=== PATIENT | female | born 1960 | race Caucasian/White ===

== ENCOUNTER → 2016-09-12 | Outpatient (CLI) | payer BC ==
[~2016-09-12] MED LIST: LOSA1TAB PO; POTA10CA28 PO
[2016-09-12 16:40] LABS: HEMATOCRIT 40.3 % (37-47); MEAN CELL VOLUME 88.6 fL (80-100); MEAN CORPUSCULAR HEMOGLOBIN 30.5 pg (25-34); MEAN CORPUSCULAR HGB CONC 34.5 g/dl (32-36); PLATELET COUNT 307 K/uL (130-400); RED BLOOD COUNT 4.55 M/uL (4.2-5.4); WHITE BLOOD COUNT 7.89 K/uL (4.8-10.8)
[2016-09-12 16:49] LABS: ALT/SGPT 29 U/L (12-78); BLOOD UREA NITROGEN 9 mg/dl (7-18); BUN/CREATININE RATIO 10.9 (10-20); CARBON DIOXIDE 29 mmol/L (21-32); CHLORIDE 103 mmol/L (98-107); CHOLESTEROL 167 mg/dl (0-200); CREATININE 0.85 mg/dl (0.60-1.20); GLUCOSE 119 mg/dl (70-99); POTASSIUM 3.7 mmol/L (3.5-5.1); SODIUM 142 mmol/L (136-145); TRIGLYCERIDES 67 mg/dl (0-150); VERY LOW DENSITY LIPOPROT CALC 13 mg/dl
[2016-09-12 16:59] LABS: ALB/GLOB RATIO 1.1 (0.9-2); ALKALINE PHOSPHATASE 63 U/L (45-117); AST/SGOT 18 U/L (15-37); CHOLESTEROL/HDL RATIO 2.5; HDL CHOLESTEROL 66 mg/dl; LDL CHOLESTEROL CALCULATED 88 mg/dl
== END | disposition home or self-care (01) ==
LOC: C.LABBFT 16:24
PROVIDERS: ATTEND Internal Medicine
DX: I10 Essential (primary) hypertension (principal)

== ENCOUNTER → 2016-10-23 | Outpatient (CLI) | payer BC | END | disposition home or self-care (01) | LOC: C.PATHSPEC 13:58 | PROVIDERS: ATTEND Dermatology | DX: L82.1 Other seborrheic keratosis (principal) ==

== ENCOUNTER → 2016-11-27 | Outpatient (CLI) | payer BC ==
--- NOTE | 2016-11-27 12:32 | MAMMOGRAPHY REPORT ---
BILATERAL DIGITAL SCREENING MAMMOGRAM WITH CAD: 11/27/2016 CLINICAL HISTORY: Routine screening. Patient has no complaints. TECHNIQUE: Bilateral CC and MLO views were obtained. Current study was also evaluated with a Comput er Aided Detection (CAD) system. COMPARISON: Comparison is made to exams dated: 11/24/2015 mammogram, 11/22/2014 mammogram, 11/19/2013 mammogram, 11/17/2012 mammogram, 11/06/2009 mammogram - [facility], and 11/03/2008. BREAST COMPOSITION: The tissue of both breasts is heterogeneously dense, which may obscure small ma sses. FINDINGS: The parenchymal pattern is similar to prior mammograms. No developing mass, architectura l distortion or cluster of suspicious microcalcifications is seen in either breast. IMPRESSION: ACR BI-RADS CATEGORY 2: BENIGN There is no mammographic evidence of malignancy. A 1 year screening mammogram is recommended. The p atient will receive written notification of the results. Approximately 10% of breast cancers are not detected with mammography. A negative mammographic repor t should not delay biopsy if a clinically suggestive mass is present. Lynnette Todd M.D. ay/:11/27/2016 08:35:08 Accounting Specialist: Emily Barnett, [facility] letter sent: Normal 1/2 BI-RADS Code: ACR BI-RADS Category 2: Benign
== END | disposition home or self-care (01) ==
LOC: C.MAMM 07:53
PROVIDERS: ATTEND Internal Medicine
DX: Z12.31 Encounter for screening mammogram for malignant neoplasm of breast (principal)

== ENCOUNTER → 2017-10-29 | Outpatient (CLI) | payer OTHER | END | disposition home or self-care (01) | LOC: C.PAPS 16:36 | PROVIDERS: ATTEND Obstetrics & Gynecology | DX: Z12.4 Encounter for screening for malignant neoplasm of cervix (principal) ==

== ENCOUNTER → 2017-12-02 | Outpatient (CLI) | payer OTHER ==
--- NOTE | 2017-12-04 07:49 | MAMMOGRAPHY REPORT ---
BILATERAL DIGITAL SCREENING MAMMOGRAM TOMOSYNTHESIS WITH CAD: 12/02/2017 CLINICAL HISTORY: Routine screening. TECHNIQUE: Breast tomosynthesis in addition to standard 2D mammography was performed. Current study was also evaluated with a Computer Aided Detection (CAD) system. COMPARISON: Comparison is made to exams dated: 11/27/2016 mammogram, 11/24/2015 mammogram, 11/22/2014 m ammogram, 11/19/2013 mammogram, 11/17/2012 mammogram, and 11/14/2011 mammogram - [facility]. BREAST COMPOSITION: The tissue of both breasts is heterogeneously dense, which may obscure small mas ses. FINDINGS: The parenchymal pattern is unchanged. No developing mass, architectural distortion or clus ter of suspicious microcalcifications is seen in either breast. IMPRESSION: ACR BI-RADS CATEGORY 2: BENIGN There is no mammographic evidence of malignancy. A 1 year screening mammogram is recommended. The pa tient will receive written notification of the results. Approximately 10% of breast cancers are not detected with mammography. A negative mammographic report should not delay biopsy if a clinically suggestive mass is present. Lynnette Todd M.D. ay/:12/02/2017 17:10:32 Mill Representative: Kimberly JACQUES(Sky)(Aly), [facility] letter sent: Normal 1/2 BI-RADS Code: ACR BI-RADS Category 2: Benign
== END | disposition home or self-care (01) ==
LOC: C.MAMM 08:02
PROVIDERS: ATTEND Internal Medicine
DX: Z12.31 Encounter for screening mammogram for malignant neoplasm of breast (principal)

== ENCOUNTER 2024-02-19 19:26 | Inpatient (IN) ==
[2024-02-19 19:51] LABS: Basophils # (auto) 0.06 K/uL (0.00-0.20); Basophils % (auto) 0.8 %; Eosinophils % (auto) 8.1 %; Hematocrit (blood only) 41.9 % (37.0-47.0); Hemoglobin 14.4 g/dl (12.0-16.0); Immature Granulocytes # (auto) 0.01 K/uL (0.01-0.20); Immature Granulocytes % (auto) 0.1 %; Lymphocytes # (auto) 1.59 K/uL (1.20-3.40); Lymphocytes % (auto) 21.4 %; Mean Corpuscular Hemoglobin 30.1 pg (25.0-34.0); Mean Corpuscular Hgb Conc 34.4 g/dL (32.0-36.0); Mean Corpuscular Volume 87.7 fL (80.0-100.0); Mean Platelet Volume 10.7 fL (9.4-12.4); Monocytes # (auto) 0.76 K/uL (0.11-0.59); Monocytes % (auto) 10.2 %; Neutrophils % (auto) 59.4 %; Platelet Count 238 K/uL (130-400); RDW Coefficient of Variation 11.9 % (11.5-14.5); Red Blood Count 4.78 M/uL (4.20-5.40); White Blood Count 7.42 K/ul (4.8-10.8)
[2024-02-19 20:10] LABS: Albumin Globulin Ratio 1.5 (0.9-2); Albumin Level 4.6 gm/dl (3.4-5.0); BUN Creatinine Ratio 14.1 (10-20); Bilirubin,Total 0.5 mg/dl (0.2-1.0); Calcium 9.8 mg/dl (8.6-10.3); Creatinine Clr Calc Pharmacy 76.6 ml/min; Est GFR (African American) 77.3 ml/min; Est GFR (Non-African American) 66.7 ml/min; Potassium 3.5 mmol/L (3.5-5.1); Total Protein 7.6 gm/dl (6.0-8.3)
[2024-02-19 20:24] LABS: Troponin I High Sensitivity 210.9 pg/ml (0-14)
--- NOTE | 2024-02-19 20:48 | Emergency Department Note ---
Impression & Plan Acute non-ST elevation myocardial infarction (NSTEMI) ED Provider Note NAME: TASH CHAVEZ AGE: 63 SEX: F : 1960 ARRIVES VIA: Walk-In INFORMANT: Patient, ED PROVIDER(S): Emilio Martinez MD CHIEF COMPLAINT: Indigestion HPI: This is a 63-year-old female presenting for indigestion sensation. Patient notes that at around 6 PM she began having indigestion sensation with nausea. She notes that her bilateral arms were somewhat heavy. This concerned her so she came to the hospital. She has no history of cardiac disease patient says happened previously as well. No recent fevers, chills, vomiting, abdominal pain. No back pain. No trouble breathing. Patient did deny any current chest pain as well. Patient took aspirin prior to arrival. ROS: See above HPI for pertinent positives & negatives. A total of 10 systems reviewed and were otherwise negative. PHYSICAL EXAMINATION: General: resting comfortably in no acute distress Head: Normocephalic and atraumatic Eyes: Normal inspection, extraocular muscles intact Ear, nose, throat: Normal external exam Neck: Normal range of motion Respiratory: lungs clear to auscultation bilaterally Cardiovascular: Regular rate/rhythm, no murmur GI: soft, nontender, no guarding or rebound Extremities: nontender, moves all extremities Neuro: The patient awake and alert, appropriately conversive, no focal deficits, symmetric faces Skin: Warm, dry, and intact MEDICAL DECISION MAKING: This is a 63-year-old female presenting for indigestion/nausea. Patient has no current chest pain. She notes arm heaviness. Concern for ACS, PE, dissection, gastroenteritis, GERD. -First ECG independently interpreted by me with normal sinus rhythm, rate of 64, normal axis, first-degree AV block, normal QRS, normal QTc, no ST segment elevations consistent with STEMI criteria -Second ECG independently interpreted by me with normal sinus rhythm, rate of 60, normal axis, first-degree AV block, normal QRS, normal QTc, no ST segment elevations consistent with STEMI criteria -Troponin is elevated at over 200 at this time. Patient notes significant proved in symptoms since being in the emergency department. She took aspirin prior to arrival. -Clinic without severe pain in back or chest, low concern for dissection. No hypoxia or tachycardia to suggest PE. Consider NSTEMI is most likely diagnosis with his elevated troponin with reassuring EKG. -Will start heparin at this time for suspected NSTEMI. -Patient care discussed with Sriram Baldwin PA-C for admission Differential diagnosis: See above ER treatment provided: See below Diagnostics interpreted by me: ECG: See above Cardiac Monitoring: An order was placed for continuous cardiac monitoring. The monitor shows a rate of 65 with sinus rhythm. Laboratory studies: As stated above and show below. Imaging studies: See below. Past Med/Surg History Problem List (Updated 02/19/24 @ 22:22 by Emilio Martinez MD) Acute non-ST elevation myocardial infarction (NSTEMI) (Acute) Elevated troponin Urge incontinence Esophageal dysphagia Hypertension History of colon polyps Prediabetes Postmenopausal Chronic vulvitis GERD (gastroesophageal reflux disease) Postmenopausal atrophic vaginitis Medical History PMR (polymyalgia rheumatica) History of prediabetes Hx of chest pain History of COVID-19 Tubular adenoma of colon Depression Cardiac murmur Hypertension Surgical History H/O eye surgery History of bilateral tubal ligation History of colonoscopy History of tooth extraction Strabismus Family History Sister Breast cancer Mother Hypertension Other No significant family history Denies family history of Ovarian cancer Prostate cancer Myocardial infarction Colorectal cancer Social History Smoking Status: Never smoker Second Hand Exposure: No; Do You Dip or Chew Tobacco: No; Hx Alcohol Use: Yes Alcohol Intake Frequency: Monthly or Less Hx Substance Use: No Preferred Language: Citizen Of [place] Communication Ability: Effective Visual Impairment: No Limitations Hearing Ability: Normal Trawl Net Maker Required: No Beliefs That Will Affect Care: None marital status: Current Living Situation: Spouse current occupational status: employed Feels Safe at Home: Yes Childhood Exposure to Second-Hand Smoke: No Dental Care, Regularly: Yes Physical Activity Frequency: 1-2 Times per Week Seatbelt Use: always Sunscreen Use: Yes Assistive Devices: Glasses Allergies Allergies Allergy/AdvReac Type Severity Reaction Status Date / Time No Known Allergies Allergy Verified 02/19/24 14:47 Home Meds Home Medications Medication Instructions Recorded Confirmed multivitamin 1 tab PO Q2D 04/14/19 02/19/24 Previous Rx's Medication Instructions Recorded triamcinolone acetonide 0.1 % 1 applic topical UD PRN Skin 10/30/22 topical cream Irritation #15 grams solifenacin 10 mg tablet 10 mg PO DAILY #90 tabs 12/23/23 famotidine 40 mg tablet 40 mg PO DAILY PRN heartburn #30 01/02/24 tabs pantoprazole 40 mg tablet,delayed See Rx Instructions .Route 01/02/24 release .COMPLEX #60 tabs losartan 50 mg tablet 50 mg PO DAILY #90 tabs 01/05/24 Results & Data (ED) Vital Signs Vital Signs - 24 hr 02/19/24 19:28 02/19/24 20:41 02/19/24 20:42 Temperature 36.6 C Temperature Source Temporal Artery Scan Pulse Rate 62 67 65 Respiratory Rate 18 20 Respiratory Effort / Characteristics Non-Labored Spontaneous Respiratory Depth Normal Blood Pressure 210/92 H Blood Pressure Mean 131 Pulse Oximetry 98 Oxygen Delivery Method Room Air Sepsis Recent Fever Within 48 Hours No Sepsis New/Unexplained Change in Mental Status No Sepsis Action Taken by Nursing No Action Required Laboratory Data 02/19/24 19:40 02/19/24 19:40 Lab Results 02/19/24 Range/Units 19:40 WBC 7.42 (4.8-10.8) K/ul RBC 4.78 (4.20-5.40) M/uL Hgb 14.4 (12.0-16.0) g/dl Hct 41.9 (37.0-47.0) % MCV 87.7 (80.0-100.0) fL MCH 30.1 (25.0-34.0) pg MCHC 34.4 (32.0-36.0) g/dL RDW Std Deviation 38.0 (36.4-46.3) fL RDW Coeff of Seth 11.9 (11.5-14.5) % Plt Count 238 (130-400) K/uL MPV 10.7 (9.4-12.4) fL Immature Gran % (Auto) 0.1 % Neut % (Auto) 59.4 % Lymph % (Auto) 21.4 % Bullock % (Auto) 10.2 % Eos % (Auto) 8.1 % Baso % (Auto) 0.8 % Neut # (Auto) 4.40 (1.40-6.50) K/uL Lymph # (Auto) 1.59 (1.20-3.40) K/uL [place]ock # (Auto) 0.76 H (0.11-0.59) K/uL Eos # (Auto) 0.60 H (0.00-0.50) K/uL Baso # (Auto) 0.06 (0.00-0.20) K/uL Immature Gran # (Auto) 0.01 (0.01-0.20) K/uL APTT 27 (21-31) Seconds PTT Ratio 1.0 Sodium 140 (136-145) mmol/L Potassium 3.5 (3.5-5.1) mmol/L Chloride 107 (98-107) mmol/L Carbon Dioxide 26 (21-32) mmol/L Anion Gap 7 (3-11) BUN 13 (6-23) mg/dl Creatinine 0.92 (0.6-1.2) mg/dl Est Cr Clr Drug Dosing 76.6 ml/min Est GFR ( Amer) 77.3 ml/min Est GFR (Non-Af Amer) 66.7 ml/min BUN/Creatinine Ratio 14.1 (10-20) Glucose 134 H (70-99(Fasting)) mg/dl Calcium 9.8 (8.6-10.3) mg/dl Magnesium 2.0 (1.7-2.4) mg/dl Total Bilirubin 0.5 (0.2-1.0) mg/dl AST 16 (13-39) U/L ALT 14 (7-52) U/L Alkaline Phosphatase 61 (34-104) U/L Troponin I High Sens 210.9 H* (0-14) pg/ml Total Protein 7.6 (6.0-8.3) gm/dl Albumin 4.6 (3.4-5.0) gm/dl Globulin 3.0 (2.5-4.0) gm/dl Albumin/Globulin Ratio 1.5 (0.9-2) Lipase 14 (11-82) U/L Administered Medications Nitroglycerin (Nitroglycerin 2% Ointment 30gm Tube) 0.5 inch EXT Q6H SUSY Stop: 03/20/24 21:59 Last Admin: 02/19/24 21:51 Dose: 0.5 inch Documented By: DANYEL Discontinued Medications Aspirin (Aspirin 81 Mg Ectab) 81 mg PO NOW STA Stop: 02/19/24 21:16 Last Admin: 02/19/24 21:50 Dose: 81 mg Documented By: DANYEL Heparin Sodium/Dextrose (Heparin Iv Adult Wt-Based Low-Dose W/ Initial Bolus Protocol) 1 each IV NOW STA; Protocol Stop: 02/19/24 20:50 Last Admin: 02/19/24 20:59 Dose: Not Given Documented By: DANYEL Pantoprazole Sodium 40 mg/ (Syringe) 10 mls @ 5 mls/min IV NOW ONE Stop: 02/19/24 21:01 Last Admin: 02/19/24 21:51 Dose: 5 mls/min Documented By: DANYEL Famotidine (Pepcid 20mg Iv Push) 20 mg in 5 mls @ 2.5 mls/min IV NOW STA Stop: 02/19/24 20:59 Last Admin: 02/19/24 21:51 Dose: 2.5 mls/min Documented By: DANYEL Ioversol (Optiray 320 125ml) 119 ml IV ONCE ONE Stop: 02/19/24 21:38 Last Admin: 02/19/24 21:38 Dose: 119 ml Documented By: ARASELI Potassium Chloride (Potassium Chloride Crtab 20 Meq Tabcr) 40 meq PO NOW STA Stop: 02/19/24 21:40 Last Admin: 02/19/24 21:51 Dose: 40 meq Documented By: DANYEL Discharge Plan Visit Data Chief Complaint: Chest Pain Stated Complaint: CHEST PAIN, ARM HEAVINESS ED Provider: Emilio Martinez Discharge Problem: Acute non-ST elevation myocardial infarction (NSTEMI) Patient Disposition: Admitted As Inpatient Discharge Instructions Interventions: ED Discharge Assessment Last Done: 02/19/24 22:17
--- NOTE | 2024-02-19 20:55 | History & Physical Report ---
Date of Service February 19, 2024 Assessment & Plan (1) Chest pain: Plan: Admit to the PCU on telemetry and pulse oximetry Currently hypertensive with systolics in the 180s to without chest discomfort, otherwise stable, and nontoxic-appearing Presented to ER after experiencing approximately 1 hour of substernal/epigastric burning discomfort and a feeling of heaviness in the bilateral posterior upper extremities which started around 6 PM this evening Initial high-sensitivity troponin is elevated to [address] segment or T wave changes on EKG however there is a note of possible age undetermined septal infarct While her chest discomfort is similar to previous episodes of reflux/GERD, and she does have a history of esophageal stenosis requiring previous dilation, we cannot rule out cardiac etiology at this time Patient 2 baby aspirin prior to arrival, will give another 81 mg aspirin now Will start 0.5 inches of Nitro paste now, and will have as needed hydralazine on board for ongoing hypertension Will obtain stat CTA of the chest to rule out aortic dissection with her substernal chest pain and hypertension on arrival Will wait to start heparin drip until CTA chest results are back, if negative for dissection we will start Will follow 2-hour repeat high-sensitivity troponin is in process, will then continue to trend overnight Will ensure potassium is at or above 4.0 and magnesium is at or above 2 point Will wait to start beta-catarino as heart rate has been in the 60s Cardiology consult placed will make n.p.o. at midnight in case they take her to the Medical Technical Writer tomorrow Will order IV pantoprazole and famotidine in case her symptoms are related to reflux N.p.o. at midnight AM CBC, CMP, mag, PT/INR (2) Hypertension: Plan: Patient confirms she has not missed recent doses of her losartan Rest of care per chest pain plan (3) GERD (gastroesophageal reflux disease): Plan: Will continue IV famotidine and pantoprazole for now Plan The patient was discussed with Dr. Lamas at the time of admission History of Present Illness Chief Complaint: Chest pain Primary Care Provider: Parisa Kirkland MD Thea is a 63-year-old female with a past medical history significant for GERD, esophageal stenosis, prediabetes, hypertension, PMR, and obesity who presented to the [facility] ED on 02/19/2024 with a chief complaint of substernal burning chest pain with radiation to the left upper extremity which began at approximately 6 PM this evening. On arrival to the ED she was noted to be hypertensive at 162/84, but was otherwise stable. Labs were significant for an initial high-sensitivity troponin of 210. Chest x-ray had yet to be read prior to my exam however on initial review appears negative for acute findings. 2 separate EKGs obtained in the emergency department showed normal sinus rhythm with evidence this septal infarct age undetermined. Per the ED, the patient took full dose aspirin prior to arrival. Prior to admission the patient was ordered a dose of sublingual nitroglycerin and was started on a low- dose, weight-based heparin drip with bolus. Patient was sitting in bed in no acute distress at the time exam. She states that she was in her normal state of health, sitting at her kitchen table this evening writing a letter when she had acute onset of substernal/epigastric burning discomfort. When asked about associated/radicular pain the patient states that the back of her bilateral arms felt "heavy". She denies pain in the neck, jaw, back. States symptoms lasted for approximately 1 hour, confirms that she is no longer experiencing the pain at this time but just feels tired. She took 2 baby aspirin at home when symptoms began. When asked what she had to eat earlier in the day she explains that she had an Khmer sub for lunch along with a soda, and did not have anything for dinner prior to symptoms starting. She denies experiencing decreased exercise tolerance or increased shortness of breath/dyspnea on exertion with her normal activities such as going up steps. She adds that yesterday she went for a long walk to her friend's house and felt fine. She denies previous history of cardiac disease herself, and denies any history of sudden cardiac before the age of 50 on either side of the family. When asked, she denies a history of major bleeding and is in agreement with starting heparin drip tonight. Denies recent pleuritic chest pain, cough, hemoptysis, vomiting, dysuria/hematuria, diarrhea, melena, lower extremity swelling, recent trauma. She is a full code and she would want her to make medical decisions for her if she could not make them herself. Of note, the patient underwent a stress echocardiogram on 08/12/2022 which was read as normal, she had no exercise-induced chest pain, and was noted to be hypertensive shortly after. Please refer to Dr. Simon's attestation for any changes to the treatment plan Allergies Allergy/AdvReac Type Severity Reaction Status Date / Time No Known Allergies Allergy Verified 02/19/24 14:47 Home Medications Medication Instructions Recorded Confirmed Type multivitamin 1 tab PO Q2D 04/14/19 02/19/24 History triamcinolone acetonide 0.1 % 1 applic topical UD PRN Skin 10/30/22 02/19/24 Rx topical cream Irritation #15 grams solifenacin 10 mg tablet 10 mg PO DAILY #90 tabs 12/23/23 02/19/24 Rx famotidine 40 mg tablet 40 mg PO DAILY PRN heartburn #30 01/02/24 02/19/24 Rx tabs pantoprazole 40 mg tablet,delayed See Rx Instructions .Route 01/02/24 02/19/24 Rx release .COMPLEX #60 tabs losartan 50 mg tablet 50 mg PO DAILY #90 tabs 01/05/24 02/19/24 Rx amlodipine 2.5 mg tablet 2.5 mg PO PM #30 tabs 02/21/24 Rx Past Med/Surg History Problem List (Updated 02/19/24 @ 22:22 by Emilio Martinez MD) Acute non-ST elevation myocardial infarction (NSTEMI) (Acute) Elevated troponin Urge incontinence Esophageal dysphagia Hypertension History of colon polyps Prediabetes Postmenopausal Chronic vulvitis GERD (gastroesophageal reflux disease) Postmenopausal atrophic vaginitis Medical History PMR (polymyalgia rheumatica) History of prediabetes Hx of chest pain History of COVID-19 Tubular adenoma of colon Depression Cardiac murmur Hypertension Surgical History H/O eye surgery History of bilateral tubal ligation History of colonoscopy History of tooth extraction Strabismus Family History Sister Breast cancer Mother Hypertension Other No significant family history Denies family history of Ovarian cancer Prostate cancer Myocardial infarction Colorectal cancer Social History Smoking Status: Never smoker Second Hand Exposure: No; Do You Dip or Chew Tobacco: No; Hx Alcohol Use: Yes Alcohol Intake Frequency: Monthly or Less Hx Substance Use: No Preferred Language: [place] Communication Ability: Effective Visual Impairment: No Limitations Hearing Ability: Normal Computer Salesperson Retail Required: No Beliefs That Will Affect Care: None marital status: Current Living Situation: Spouse current occupational status: employed Feels Safe at Home: Yes Childhood Exposure to Second-Hand Smoke: No Dental Care, Regularly: Yes Physical Activity Frequency: 1-2 Times per Week Seatbelt Use: always Sunscreen Use: Yes Assistive Devices: None Physical Exam Physical Exam: Physical Exam: General: In no acute distress, stated age, well-nourished, good hygiene HEENT: Normocephalic, atraumatic, no scleral icterus, pupils around round, symmetrical, and reactive to light, moist mucus membranes, trachea midline, no thyromegaly Chest/Pulm: No reproducible pain on palpation of the substernal region/epigastric region, No respiratory distress, symmetrical chest expansion, clear breath sounds throughout Cardiac: RRR, no murmurs noted Abdomen: Negative for ascites and bruising, normoactive bowel sounds, soft, non-tender to palpation throughout Musculoskeletal: Symmetrical and without signs of acute trauma, upper and lower extremities with full ROM, no atrophy, spasticity, or flaccidity Extremities: Radial, dorsalis pedis, and posterior tibial pulses are intact and symmetrical, no edema noted in the BL LE's Skin: Warm, dry, no rashes , lesions, or scars noted Neuro: Alert and oriented to person, place, month, year, and president, no focal defects, no tremors noted Psych: No acute distress, calm and cooperative during the exam Results & Data Results & Data Vital Signs (Past 12 Hours) Vital Signs Temp Pulse Resp BP Pulse Ox O2 Del Method 02/19/24 20:41 67 02/19/24 19:28 36.6 C 62 18 210/92 H 98 Room Air Laboratory Results Abnormal lab results 02/19/24 Range/Units 19:40 [place] # (Auto) 0.76 H (0.11-0.59) K/uL Eos # (Auto) 0.60 H (0.00-0.50) K/uL Glucose 134 H (70-99(Fasting)) mg/dl Troponin I High Sens 210.9 H* (0-14) pg/ml ECG Additional Comments: Normal sinus rhythm Septal infarct , age undetermined Abnormal ECG When compared with ECG of 12-AUG-2022 05:39, Septal infarct is now Present Code Status & VTE Plan Code Status Full code VTE Prophylaxis Plan VTE Prophylaxis will be ordered: Yes Supervising Physician Co-Signing Physician Notes Attending addendum: I have physically seen this patient, have supervised the SHELLIE's activities, and agree with the H&P unless as otherwise noted. Assessment and Plan: NSTEMI/hypertension- The patient will be admitted to telemetry for serial cardiac enzymes, serial EKG's, cardiac rhythm monitoring and a 2-D echocardiogram with Dopplers. Initial troponin 210.9, with follow-up 1467.1 Nitropaste 1/2 inch to anterior chest wall every 6 hours Continue amlodipine and losartan Lopressor IV if blood pressure elevation persists after above Heparin drip per protocol CTA negative Total aspirin 324 mg given Replete potassium to 4 and magnesium to 2 Consult cardiology GERD- Famotidine and pantoprazole as noted PG Care Time/CCT Total # of Minutes Spent Total Time Spent with Patient: Total time spent is greater than 50% in coordination of care (as documented) at patient's floor/unit and/or counseling patient: Coding [place] [address] INT INP/OBS CARE 3/75MIN Patient Type Established Medical Decision Making High Complexity Diagnoses Chest pain R07.9 Hypertension I10 GERD (gastroesophageal reflux disease) K21.9
[2024-02-19] MEDS: Heparin IV Adult Wt-Based Low-Dose w/ INITIAL Bolus Protocol IV STA (20:59)
[2024-02-19] MEDS ORDERED: HEPARIN SOD (PORCINE) 1000 UNIT/ML IV ONE (21:04)
[2024-02-19] MEDS: OPTIRAY 320 125ml IV ONE (21:38)
[2024-02-19 21:44] LABS: Partial Thromboplastin Time 27 Seconds (21-31)
[2024-02-19] MEDS: ASPIRIN 81 MG ECTAB PO STA (21:50)
[2024-02-19] MEDS: POTASSIUM CHLORIDE CRTAB 20 MEQ TABCR PO STA (21:51)
[2024-02-19] MEDS: NITROGLYCERIN 2% OINTMENT 30GM TUBE EXT SCH (21:51)
[2024-02-19] MEDS: PANTOprazole 40 MG in SYRINGE 0 ML IV ONE (21:51)
[2024-02-19] MEDS: FAMOTIDINE 20MG IV PUSH 20 MG/5 ML SYR IV STA (21:51)
[2024-02-19 22:09] LABS: Magnesium 1.9 mg/dl (1.7-2.4)
[2024-02-19 22:27] LABS: Troponin I High Sensitivity 1467.1 pg/ml (0-14)
[2024-02-19] MEDS ORDERED: Heparin IV Adult Wt-Based Standard *NO* INITIAL Bolus Protocol IV STA (22:35)
[2024-02-19] MEDS: hydrALAZINE HCL 20 MG/ML VIAL IV PRN (22:51)
[2024-02-19] MEDS: HEPARIN SOD (PORCINE) 1000 UNIT/ML IV ONE (22:58)
[2024-02-19] MEDS: HEPARIN SODIUM/DEXTROSE 25,000 UNITS/500 ML BAG IV SCH ×2 (22:58→23:36)
--- NOTE | 2024-02-20 01:10 | CT Scan Report ---
Exam(s): CTA CHEST W/WO Contrast IV Amt: 119 ml optiray 320 EXAM: CT Chest Without and With Intravenous Contrast CLINICAL HISTORY: Reason for exam: subsernal chest pain, hypertension. TECHNIQUE: Axial computed tomographic images of the chest without and with intravenous contrast. CTDI is 53.1 mGy and DLP is 1008.6 mGy-cm. Automated exposure control was utilized for the study. A dose lowering technique was utilized adhering to the principles of ALARA. CONTRAST: Patient received 119 ml optiray 320 of IV contrast COMPARISON: No relevant prior studies available. FINDINGS: Pulmonary arteries: Unremarkable. No pulmonary embolism. Aorta: No acute findings. No thoracic aortic aneurysm. Lungs: Unremarkable. No mass. No consolidation. Pleural space: Unremarkable. No significant effusion. No pneumothorax. Heart: Unremarkable. No cardiomegaly. No significant pericardial effusion. No evidence of RV dysfunction. Bones/joints: No acute fracture. No dislocation. Soft tissues: Unremarkable. Lymph nodes: Unremarkable. No enlarged lymph nodes. IMPRESSION: Normal chest CTA. No pulmonary embolism. Electronically signed by: Prasanth He MD 02/20/24 01:09 AM
[2024-02-20 06:19] LABS: Basophils # (auto) 0.06 K/uL (0.00-0.20); Basophils % (auto) 0.7 %; Eosinophils # (auto) 0.42 K/uL (0.00-0.50); Eosinophils % (auto) 4.9 %; Hemoglobin 13.7 g/dl (12.0-16.0); Immature Granulocytes # (auto) 0.02 K/uL (0.01-0.20); Immature Granulocytes % (auto) 0.2 %; Mean Corpuscular Hemoglobin 30.4 pg (25.0-34.0); Mean Corpuscular Hgb Conc 34.3 g/dL (32.0-36.0); Mean Corpuscular Volume 88.9 fL (80.0-100.0); Mean Platelet Volume 10.9 fL (9.4-12.4); Monocytes # (auto) 0.99 K/uL (0.11-0.59); Monocytes % (auto) 11.5 %; Neutrophils # (auto) 5.29 K/uL (1.40-6.50); Neutrophils % (auto) 61.7 %; Platelet Count 219 K/uL (130-400); RDW Coefficient of Variation 11.8 % (11.5-14.5); RDW Standard Deviation 37.9 fL (36.4-46.3); White Blood Count 8.58 K/ul (4.8-10.8)
[2024-02-20 06:28] LABS: Albumin Globulin Ratio 1.5 (0.9-2); Albumin Level 3.9 gm/dl (3.4-5.0); BUN Creatinine Ratio 10.5 (10-20); Bilirubin,Total 0.7 mg/dl (0.2-1.0); Calcium 9.4 mg/dl (8.6-10.3); Creatinine Clr Calc Pharmacy 81.6 ml/min; Est GFR (African American) 83.9 ml/min; Est GFR (Non-African American) 72.4 ml/min; Globulin 2.6 gm/dl (2.5-4.0); Magnesium 1.9 mg/dl (1.7-2.4); Potassium 3.8 mmol/L (3.5-5.1); Total Protein 6.5 gm/dl (6.0-8.3)
[2024-02-20 06:37] LABS: Troponin I High Sensitivity 14189.3 pg/ml (0-14)
[2024-02-20 07:11] LABS: INR 1.1 (0.9-1.1); Prothrombin Time 11.5 Seconds (9.0-12.0)
[2024-02-20 07:16] LABS: ANTI-Xa, UFH(UnfractionatedHep 0.72 IU/ml (0.3-0.7)
--- NOTE | 2024-02-20 07:25 | XRay Report ---
SINGLE VIEW CHEST CLINICAL HISTORY: Atypical chest pain FINDINGS: A PA, chest radiograph is compared to study dated 08/12/2022. The cardiomediastinal silhouet te is unremarkable. There is mild bibasilar atelectasis. The lungs and pleural spaces are otherwise c lear. No pneumothorax is seen. The bony thorax is grossly intact. IMPRESSION: No active disease in the chest. ACT 112: Negative or not required by law. Electronically signed by: Terrance Parrish M.D. 02/20/2024 7:24 AM
[2024-02-20] MEDS: LOSARTAN POTASSIUM 50 MG TAB PO SCH (08:36)
[2024-02-20] MEDS: OXYBUTYNIN CHLORIDE XL 5 MG TABCR PO SCH (08:36)
[2024-02-20] MEDS: ACETAMINOPHEN 325 MG TAB PO PRN (08:41)
[2024-02-20] MEDS: FAMOTIDINE 20MG IV PUSH 20 MG/5 ML SYR IV SCH (09:17)
--- NOTE | 2024-02-20 10:27 | Pre Anesthesia Assessment ---
Date of Service February 20, 2024 Pre Sedation Assessment Vital Signs Temp Pulse Pulse Resp BP BP BP 02/20/24 07:41 36.3 C L 63 19 144/77 H 02/20/24 06:22 149/79 H 02/20/24 05:44 163/77 H 02/20/24 05:22 66 164/77 H 02/20/24 03:33 36.8 C 63 18 171/76 H 02/19/24 23:10 62 162/73 H 02/19/24 22:43 59 L 02/19/24 22:40 36.6 C 69 18 188/60 H 02/19/24 22:17 02/19/24 22:07 170/77 H 02/19/24 22:03 65 17 02/19/24 21:46 188/90 H 02/19/24 21:33 67 19 02/19/24 21:30 67 28 H 02/19/24 21:27 61 15 02/19/24 21:15 65 15 02/19/24 21:09 70 18 02/19/24 20:42 65 20 02/19/24 20:41 67 02/19/24 19:28 36.6 C 62 18 210/92 H Pulse Ox O2 Del Method 02/20/24 07:41 95 Room Air 02/20/24 06:22 02/20/24 05:44 02/20/24 05:22 02/20/24 03:33 95 Room Air 02/19/24 23:10 02/19/24 22:43 02/19/24 22:40 97 Room Air 02/19/24 22:17 Room Air 02/19/24 22:07 02/19/24 22:03 97 Room Air 02/19/24 21:46 02/19/24 21:33 02/19/24 21:30 02/19/24 21:27 02/19/24 21:15 02/19/24 21:09 02/19/24 20:42 02/19/24 20:41 02/19/24 19:28 98 Room Air Cardiovascular + regular rate and + regular rhythm Respiratory + respiratory effort normal Pre-Sedation Airway Assessment Smoking Status: Never smoker Hx Sleep Apnea: No Hx Difficult Intubation: No Short, Thick Neck: No Thyromental Distance: > or= 3.5 Finger Breadths Oral Cavity: + WNL Mallampati Class: III ASA: ASA3 Procedure Planning Contraindications for Sedation: none Current Medications Reviewed: Yes Notes The planned sedation has been discussed with the patient. Informed Consent was obtained. I have identified the patient, determined the appropriateness of s edation and have assessed the patient immediately prior to the procedure. All medicine(s) and interventions are by my order.
--- NOTE | 2024-02-20 10:27 | Cardiology Consultation ---
Date of Consultation February 20, 2024 Assessment & Plan (1) Acute non-ST elevation myocardial infarction (NSTEMI): (2) Elevated troponin: (3) Hypertension: Plan 1. NSTEMI: She has elevated biomarkers consistent with an acute coronary event. However, coronary anatomy was normal. There was no evidence of a recent acute coronary syndrome. Heparin and nitroglycerin were discontinued. Waiting on an echocardiogram at this point. Elevated biomarkers possibly related to hyperte nsion, although the elevation is fairly significant. 2. Elevated troponin: Not related to an acute coronary syndrome. Possibly related to high blood pressure. Awaiting echocardiogram to see if there is other evidence of myocarditis or myocardial dysfunction. 3. Hypertension: Patient does have a history of high blood pressure. He states at home her systolics generally run 130 systolic. Here in the hospital that been more notably elevated. I think we can double the losartan to 100 mg daily. The addition of a diuretic or calcium channel catarino should also be considered. History of Present Illness Reason for Consultation: NSTEMI Requesting Physician: Jade Attending Physician: Earnest Garces History of Present Illness Of cardiac disease who had some symptoms of chest discomfort yesterday patient states that while at rest she began to have symptoms burning in the epigastric area. This was followed by some paresthesias involving the forearms bilat erally. Some neck and back discomfort as well. She felt like the symptoms were reminiscent of reflux. The symptoms however lasted and became more significant. She presented to the emergency room for evaluation. She continued to have some symptoms at the time of presentation but these resolved gradually over the next few hours. She cannot recall any specific remedy which resolved the situation. She does have indigestion at times. This seems similar in character but was more intense. She maintains a reasonable level of activity and has no exertional symptoms. She does not exercise vigorously, but did not report any exertional chest discomfort or burning. No limiting dyspnea. No dizziness or lightheadedness. No sense of palpitation. Otherwise she has been feeling well lately. No recurrent symptoms over the course of the evening. Feeling well currently. Allergies Allergy/AdvReac Type Severity Reaction Status Date / Time No Known Allergies Allergy Verified 02/19/24 14:47 Home Medications Medication Instructions Recorded Confirmed Type multivitamin 1 tab PO Q2D 04/14/19 02/19/24 History triamcinolone acetonide 0.1 % 1 applic topical UD PRN Skin 10/30/22 02/19/24 Rx topical cream Irritation #15 grams solifenacin 10 mg tablet 10 mg PO DAILY #90 tabs 12/23/23 02/19/24 Rx famotidine 40 mg tablet 40 mg PO DAILY PRN heartburn #30 01/02/24 02/19/24 Rx tabs pantoprazole 40 mg tablet,delayed See Rx Instructions .Route 01/02/24 02/19/24 Rx release .COMPLEX #60 tabs losartan 50 mg tablet 50 mg PO DAILY #90 tabs 01/05/24 02/19/24 Rx Patient History Medical History PMR (polymyalgia rheumatica) History of prediabetes Hx of chest pain History of COVID-19 Tubular adenoma of colon Depression Cardiac murmur Hypertension Surgical History H/O eye surgery History of bilateral tubal ligation History of colonoscopy History of tooth extraction Strabismus Family History Sister Breast cancer Mother Hypertension Other No significant family history Denies family history of Ovarian cancer Prostate cancer Myocardial infarction Colorectal cancer Social History Smoking Status: Never smoker Second Hand Exposure: No; Do You Dip or Chew Tobacco: No; Hx Alcohol Use: Yes Alcohol Intake Frequency: Monthly or Less Hx Substance Use: No Preferred Language: Dutch Communication Ability: Effective Visual Impairment: No Limitations Hearing Ability: Normal 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 Mood affect appear normal. She answered all questions appropriately. HEENT: Sclerae are anicteric. Pupils are equal and reactive to light and accommodation. Extraocular movements were intact. Neuro: Cranial nerves intact Lungs: Lungs are clear to auscultation bilaterally. There are no rales wheezes or rhonchi. She has normal respiratory effort without use of accessory muscles. There is normal pulmonary excursion. Cardiac: The rhythm was regular. S1 and S2 were normal. There are no murmurs on examination. The PMI was not markedly displaced on palpation. Abdomen: The abdomen was soft and nontender. Extremities: Patient has bilateral radial pulses that are equal in intensity. There is no evidence cyanosis or clubbing. There was no evidence of significant peripheral edema bilaterally. Skin: There are no rashes noted on examination today. Results & Data Vital Signs (Past 12 Hours) Vital Signs Temp Pulse Pulse Resp BP BP Pulse Ox 02/20/24 07:41 36.3 C L 63 19 144/77 H 95 02/20/24 06:22 149/79 H 02/20/24 05:44 163/77 H 02/20/24 05:22 66 164/77 H 02/20/24 03:33 36.8 C 63 18 171/76 H 95 02/19/24 23:10 62 162/73 H 02/19/24 22:43 59 L 02/19/24 22:40 36.6 C 69 18 188/60 H 97 O2 Del Method 02/20/24 07:41 Room Air 02/20/24 06:22 02/20/24 05:44 02/20/24 05:22 02/20/24 03:33 Room Air 02/19/24 23:10 02/19/24 22:43 02/19/24 22:40 Room Air Laboratory Results Abnormal Lab Results 02/19/24 02/19/24 02/20/24 19:40 21:20 05:42 WBC 7.42 8.58 RBC 4.78 4.50 Hgb 14.4 13.7 Hct 41.9 40.0 MCV 87.7 88.9 MCH 30.1 30.4 MCHC 34.4 34.3 RDW Std Deviation 38.0 37.9 RDW Coeff of Seth 11.9 11.8 Plt Count 238 219 MPV 10.7 10.9 Immature Gran % (Auto) 0.1 0.2 Neut % (Auto) 59.4 61.7 Lymph % (Auto) 21.4 21.0 Costilla % (Auto) 10.2 11.5 Eos % (Auto) 8.1 4.9 Baso % (Auto) 0.8 0.7 Neut # (Auto) 4.40 5.29 Lymph # (Auto) 1.59 1.80 Costilla # (Auto) 0.76 H 0.99 H Eos # (Auto) 0.60 H 0.42 Baso # (Auto) 0.06 0.06 Immature Gran # (Auto) 0.01 0.02 PT 11.5 INR 1.1 APTT 27 PTT Ratio 1.0 Heparin Anti-Xa, Unfract 0.72 H* Sodium 140 141 Potassium 3.5 3.8 Chloride 107 109 H Carbon Dioxide 26 25 Anion Gap 7 7 BUN 13 9 Creatinine 0.92 0.86 Est Cr Clr Drug Dosing 76.6 81.6 Est GFR ( Amer) 77.3 83.9 Est GFR (Non-Af Amer) 66.7 72.4 BUN/Creatinine Ratio 14.1 10.5 Glucose 134 H 108 H Calcium 9.8 9.4 Magnesium 2.0 1.9 1.9 Total Bilirubin 0.5 0.7 AST 16 49 H ALT 14 17 Alkaline Phosphatase 61 53 Troponin I High Sens 210.9 H* 1467.1 H* D 22217.3 H* D Total Protein 7.6 6.5 Albumin 4.6 3.9 Globulin 3.0 2.6 Albumin/Globulin Ratio 1.5 1.5 Lipase [address] obtained the time admission did not reveal any pulmonary embolus or aortic dilation/aneurysm. Cardiac catheterization 02/20/2024: Normal coronaries. Right dominant system. No evidence of aortic stenosis. No acute coronary syndrome. PG Care Time/CCT Total # of Minutes Spent Total Time Spent with Patient: Total time spent is greater than 50% in coordination of care (as documented) at patient's floor/unit and/or counseling patient: Coding Level of Care Code 43150 IN/OBS CONSULT LVL 4,60M Diagnoses Acute non-ST elevation myocardial infarction (NSTEMI) I21.4 Elevated troponin R79.89 Hypertension I10
[2024-02-20] MEDS: fentaNYL citrate PF 100 MCG/2 ML VIAL ONE (11:24)
[2024-02-20] MEDS: HEPARIN (PORCINE) 1000 UNIT/ML 10 ML (CATH LAB USE ONLY) ONE (11:24)
[2024-02-20] MEDS: MIDAZOLAM HCL 1 MG/ML 2ML VIAL ONE (11:25)
--- NOTE | 2024-02-20 11:25 | Post Anesthesia Assessment ---
Date of Service February 20, 2024 Post Sedation Assessment Vital Signs Temp Pulse Pulse Resp BP BP BP 02/20/24 11:03 64 02/20/24 10:26 62 14 150/73 H 02/20/24 07:41 36.3 C L 63 19 144/77 H 02/20/24 06:22 149/79 H 02/20/24 05:44 163/77 H 02/20/24 05:22 66 164/77 H 02/20/24 03:33 36.8 C 63 18 171/76 H 02/19/24 23:10 62 162/73 H 02/19/24 22:43 59 L 02/19/24 22:40 36.6 C 69 18 188/60 H 02/19/24 22:17 02/19/24 22:07 170/77 H 02/19/24 22:03 65 17 02/19/24 21:46 188/90 H 02/19/24 21:33 67 19 02/19/24 21:30 67 28 H 02/19/24 21:27 61 15 02/19/24 21:15 65 15 02/19/24 21:09 70 18 02/19/24 20:42 65 20 02/19/24 20:41 67 02/19/24 19:28 36.6 C 62 18 210/92 H Pulse Ox O2 Del Method 02/20/24 11:03 02/20/24 10:26 94 Room Air 02/20/24 07:41 95 Room Air 02/20/24 06:22 02/20/24 05:44 02/20/24 05:22 02/20/24 03:33 95 Room Air 02/19/24 23:10 02/19/24 22:43 02/19/24 22:40 97 Room Air 02/19/24 22:17 Room Air 02/19/24 22:07 02/19/24 22:03 97 Room Air 02/19/24 21:46 02/19/24 21:33 02/19/24 21:30 02/19/24 21:27 02/19/24 21:15 02/19/24 21:09 02/19/24 20:42 02/19/24 20:41 02/19/24 19:28 98 Room Air Recovery Score Activity: Moves 4 extremities Respiration: Deep Breath/Cough Circulation: +/-20% PreAnes Value Consciousness: Fully Awake Oxygen Saturation: > 92% On Room Air Discharge Sedation Level of Care: Fast Track Phase II Post Sedation Plan On clinical assessment, the patient appears to have tolerated the sedation without complications. Patient is recovering as anticipated. Patient will continue to be monitored by nursing and may be discharged when sedation discharge criteria are met per below protocol. Upon Completions of procedure up to 15 minutes continue every 5 minute vital sig ns and the P.A.R. score; then discharge to a Phase I or Fast Track to Phase II per the following guidelines: * Discharge Patient to appropriate Phase II area if PAR is 8 or greater or return to pre- procedure baseline. The post - procedure orders will be as directed. * If PAR score is less than 8 or not return to pre-procedure baseline then patient will follow Phase I monitoring till PAR is reached for Phase II. The Phase I may be done in procedure room or may call to secure a Phase I area. * If naloxone or flumazenil are used for reversal, hold in Phase I for continued monitoring from when last reversal dose was given for a minimum of 60 minutes or longer pending the nurse and/or physician discretion of patient condition before discharge to Phase II. Please call the Sedation Physician to re-evaluate and complete post-note for discharge to Phase II area. Do NOT discharge from procedure sedation or Phase 1 until post- sedation evaluation note is complete by procedure /sedation MD Sedation Discharge Instructions to be given to the patient at discharge to home.
[2024-02-20] MEDS: niCARdipine HCL INJ 2.5 MG/ML 10 ML AMP ONE (11:26)
[2024-02-20] MEDS: OPTIRAY 350 ONE (11:26)
[2024-02-20] MEDS: NITROGLYCERIN/D5W 100MCG/ML 20ML SYR ONE (11:26)
--- NOTE | 2024-02-20 11:26 | Cardiac Catheterization ---
[facility] Data: Virtual Reality Specialist Cardiac Status Clinical evaluation leading to the procedure Diagnostic Physicians Name: Fco Puentes MD Closure Device Recommendations: Medical Therapy and/or Counseling Cardiac Cath Procedure Full Procedure Date February 20, 2024 Pre-Procedure Diagnosis Pre-Procedure Diagnosis: Non STEMI AUC Score AUC Score: 8 Post-Procedure Diagnosis Post-Procedure Diagnosis: Normal Coronary Arteries Procedure(s) Performed Procedure(s) Performed: Coronary Angiography and Left Heart Cath Clay Miller Fco Puentes MD Fuel Agent(s) none Estimated Blood Loss Estimated Blood Loss: 7cc Medication(s) Medication(s): Fentanyl, Heparin, Lidocaine 1%, Nicardipine, Nitroglycerin and Versed Summary of Findings Procedure performed: Left heart catheterization, selective coronary angiography Staff adjunct physical education instructor: Fco Puentes MD Indication: The patient is a 61-year-old woman who presented to the hospital with an episode of chest discomfort followed by of 8 biomarkers. She is brought to the cardiac catheterization suite due to non ST elevation myocardial infarction. Procedure in detail: The patient was informed of the risks benefits and alternatives to the intended procedure, he understood such and wished to proceed. He was taken to the cardiac catheterization suite in a fasting state. Conscious sedation was administered per protocol and the patient was monitored electrocardiographically throughout today's procedure. The right wrist area was prepped and draped in usual sterile fashion. This area was anesthetized using subcutaneous administration of a lidocaine solution. The right radial artery was then accessed using Seldinger technique, and a arterial sheath was placed at this site over a guidewire. The sheath was used to facilitate passage of the cardiac catheter for coronary angiography and left heart catheterization. Coronary angiogram was then obtained in multiple orthogonal views prior to removal of the catheter. At the conclusion of the procedure the sheath was removed and hemostasis was achieved at the access site using manual pressure. The patient tolerated procedure well, there were no immediate complications. Equipment used: 5 Serbian tiger 4, 5 Serbian JL 3.5 Findings: Coronary angiography Left main: Left main was a large vessel which essentially trifurcate into the left anterior descending a large ramus intermedius versus high OM and circumflex artery. There is no disease in this vessel. Left anterior descending: Left anterior descending was a large transapical vessel. Produced several small diagonals. No disease in this vessel Left circumflex: Left circumflex was a large nondominant vessel. It produced a high OM versus ramus intermedius and a 2nd large OM branch. No disease in this vessel Right coronary: The right coronary artery was a dominant vessel. No disease in the right coronary artery Impression: Normal coronary arteries without evidence of acute coronary syndrome Right dominant coronary system Normal left ventricular filling pressures No aortic stenosis Hemodynamics Rest Ao:: 112/58 mm of mercury Final Ao: 124/66 mm bur LV: 112/3 mm of mercury Left ventricular end-diastolic pressure 8 mm of mercury Recommendations Recommendations: Medical Therapy and/or Counseling Specimens Specimens: None Radiation Exposure (mGy) 687 Contrast (mls) 40 Procedural Complication(s) None Disposition PCU I attest to the content of the Intraoperative Record and any orders documented therein. Any exceptions are noted below. [facility] Card Cath Procedure Codes Cardiac Catheterization Procedure 1: Cardiovascular Cath Procedures: 99983 Coronaries and LHC (+/-LV) Moderate Sedation Procedure 1: Sedation/Anesthesia: 21884 Mod Sedation by the same physician;Init15 Min Child Age 5 & Up Procedure 2: Sedation/Anesthesia: 71009 Mod Sedation by the same physician; Ea [id number] Minutes PG Care Time/CCT Total # of Minutes Spent Total Time Spent with Patient: Total time spent is greater than 50% in coordination of care (as documented) at patient's floor/unit and/or counseling patient:
[2024-02-20] MEDS: PANTOprazole 40 MG in SYRINGE 0 ML IV SCH (12:11)
--- NOTE | 2024-02-20 13:14 | Electrocardiogram Report ---
Test Reason : Blood Pressure : / mmHG Vent. Rate : 059 BPM Atrial Rate : 059 BPM P-R Int : 216 ms QRS Dur : 082 ms QT Int : 438 ms P-R-T Axes : 064 003 021 degrees QTc Int : 433 ms Sinus bradycardia with 1st degree A-V block Nonspecific ST abnormality Abnormal ECG When compared with ECG of 19-FEB-2024 20:43, (unconfirmed) No significant change was found Confirmed by Fco Puentes ([id number]) on 02/20/2024 1:14:05 PM Referred By: REFERRED SELF Confirmed By:Navid Puentes
--- NOTE | 2024-02-20 15:16 | XCELERA ---
[id number]
--- NOTE | 2024-02-20 15:28 | Electrocardiogram Report ---
Test Reason : Blood Pressure : / mmHG Vent. Rate : 060 BPM Atrial Rate : 060 BPM P-R Int : 214 ms QRS Dur : 082 ms QT Int : 424 ms P-R-T Axes : 065 001 034 degrees QTc Int : 424 ms Sinus rhythm with 1st degree A-V block Abnormal ECG When compared with ECG of 19-FEB-2024 19:38, (unconfirmed) No significant change was found Confirmed by Fco Puentes ([id number]) on 02/20/2024 3:28:14 PM Referred By: REFERRED SELF Confirmed By:Navid Puentes
--- NOTE | 2024-02-20 15:30 | Electrocardiogram Report ---
Test Reason : Blood Pressure : / mmHG Vent. Rate : 064 BPM Atrial Rate : 064 BPM P-R Int : 202 ms QRS Dur : 074 ms QT Int : 406 ms P-R-T Axes : 052 -11 030 degrees QTc Int : 418 ms Normal sinus rhythm Confirmed by Fco Puentes ([id number]) on 02/20/2024 3:30:29 PM Referred By: REFERRED SELF Confirmed By:Navid Puentes
--- NOTE | 2024-02-20 17:34 | Electrocardiogram Report ---
Test Reason : Blood Pressure : / mmHG Vent. Rate : 056 BPM Atrial Rate : 056 BPM P-R Int : 202 ms QRS Dur : 082 ms QT Int : 468 ms P-R-T Axes : 064 005 024 degrees QTc Int : 451 ms Sinus bradycardia Abnormal ECG When compared with ECG of 20-FEB-2024 00:56, No significant change was found Confirmed by Fco Puentes ([id number]) on 02/20/2024 5:34:36 PM Referred By: REFERRED SELF Confirmed By:Navid Puentes
--- NOTE | 2024-02-20 22:43 | Hospitalist Progress Note ---
Date of Service February 20, 2024 Assessment & Plan (1) Chest pain: Plan: Possible NSTEMI Admit to the PCU on telemetry and pulse oximetry Troponin increase was failry significant and did mimick an acute coronary syndrome and perhaps NSTEMI. However the coronary cath was essentially clean. There was hypokinesis in the midseptum but no significant evidence of myocarditis. Given clean coronaries, heparin was stopped. Perhaps this may have been due to hypertension. Losartan will be continued will continue to monitor. If patient remains asymptomatic will discharge in AM of 02/20 (2) Hypertension: Plan: Patient confirms she has not missed recent doses of her losartan Rest of care per chest pain plan will add amlodipine HS on day of discharge (3) GERD (gastroesophageal reflux disease): Plan: Will continue IV famotidine and pantoprazole for now Admission and Anticipated Discharge Date Admission Date: February 19, 2024 Subjective Patient reports no new symptoms. Review of Systems Review of Systems: All systems reviewed & are unremarkable except as noted in HPI & below Physical Exam Physical Exam: General: In no acute distress, stated age, well-nourished, good hygiene HEENT: Normocephalic, atraumatic, no scleral icterus, pupils around round, symmetrical, and reactive to light, moist mucus membranes, trachea midline, no thyromegaly Chest/Pulm: No reproducible pain on palpation of the substernal region/epigastric region, No respiratory distress, symmetrical chest expansion, clear breath sounds throughout Cardiac: RRR, no murmurs noted Abdomen: Negative for ascites and bruising, normoactive bowel sounds, soft, non-tender to palpation throughout Musculoskeletal: Symmetrical and without signs of acute trauma, upper and lower extremities with full ROM, no atrophy, spasticity, or flaccidity Extremities: Radial, dorsalis pedis, and posterior tibial pulses are intact and symmetrical, no edema noted in the BL LE's Results & Data Results & Data Vital Signs (Past 12 Hours) Vital Signs Temp Pulse Pulse Resp BP Pulse Ox O2 Del Method 02/20/24 20:26 145/72 H 02/20/24 19:30 36.9 C 62 17 174/85 H 94 Room Air 02/20/24 16:50 36.4 C L 53 L 19 161/75 H 96 Room Air 02/20/24 16:06 59 L 06/14/24 15:20 54 L 18 122/71 95 Room Air 02/20/24 14:20 73 16 176/71 H 97 Room Air 02/20/24 13:20 54 L 17 146/78 H 98 Room Air 02/20/24 12:50 61 17 124/70 98 Room Air 02/20/24 12:20 63 17 161/83 H 95 Room Air 02/20/24 12:05 97 H 17 165/74 H 97 Room Air 02/20/24 11:50 36.9 C 59 L 17 138/76 94 Room Air 02/20/24 11:32 60 14 154/63 H 94 Room Air 02/20/24 11:03 64 PG Care Time/CCT Total # of Minutes Spent Total Time Spent with Patient: Total time spent is greater than 50% in coordination of care (as documented) at patient's floor/unit and/or counseling patient: Coding Level of Care Code 32278 SUB INP/OBS CARE 2/35MIN Diagnoses Chest pain R07.9 Hypertension I10 GERD (gastroesophageal reflux disease) K21.9
[2024-02-21 06:40] LABS: Albumin Globulin Ratio 1.5 (0.9-2); Albumin Level 3.8 gm/dl (3.4-5.0); BUN Creatinine Ratio 10.7 (10-20); Bilirubin,Total 0.8 mg/dl (0.2-1.0); Calcium 9.3 mg/dl (8.6-10.3); Creatinine Clr Calc Pharmacy 83.3 ml/min; Est GFR (African American) 86.3 ml/min; Est GFR (Non-African American) 74.5 ml/min; Globulin 2.6 gm/dl (2.5-4.0); Magnesium 1.9 mg/dl (1.7-2.4); Potassium 3.7 mmol/L (3.5-5.1); Total Protein 6.4 gm/dl (6.0-8.3)
[2024-02-21 06:49] LABS: ANTI-Xa, UFH(UnfractionatedHep < 0.10 IU/ml (0.3-0.7); INR 1.1 (0.9-1.1); Prothrombin Time 11.4 Seconds (9.0-12.0)
[2024-02-21 09:28] LABS: Basophils # (auto) 0.05 K/uL (0.00-0.20); Basophils % (auto) 0.8 %; Eosinophils # (auto) 0.31 K/uL (0.00-0.50); Eosinophils % (auto) 5.2 %; Hematocrit (blood only) 39.3 % (37.0-47.0); Hemoglobin 13.4 g/dl (12.0-16.0); Immature Granulocytes # (auto) 0.01 K/uL (0.01-0.20); Immature Granulocytes % (auto) 0.2 %; Lymphocytes % (auto) 20.2 %; Mean Corpuscular Hemoglobin 30.3 pg (25.0-34.0); Mean Corpuscular Hgb Conc 34.1 g/dL (32.0-36.0); Mean Corpuscular Volume 88.9 fL (80.0-100.0); Mean Platelet Volume 10.9 fL (9.4-12.4); Monocytes # (auto) 0.83 K/uL (0.11-0.59); Neutrophils # (auto) 3.53 K/uL (1.40-6.50); Neutrophils % (auto) 59.6 %; Platelet Count 198 K/uL (130-400); RDW Standard Deviation 38.7 fL (36.4-46.3); Red Blood Count 4.42 M/uL (4.20-5.40); White Blood Count 5.93 K/ul (4.8-10.8)
--- NOTE | 2024-02-21 10:39 | Discharge Summary ---
Date of Service February 21, 2024 Admission HPI Per Admitting Provider Thea is a 63-year-old female with a past medical history significant for GERD, esophageal stenosis, prediabetes, hypertension, PMR, and obesity who presented to the [facility] ED on 02/19/2024 with a chief complaint of substernal burning chest pain with radiation to the left upper extremity which began at approximately 6 PM this evening. On arrival to the ED she was noted to be hypertensive at 162/84, but was otherwise stable. Labs were significant for an initial high-sensitivity troponin of 210. Chest x-ray had yet to be read prior to my exam however on initial review appears negative for acute findings. 2 separate EKGs obtained in the emergency department showed normal sinus rhythm with evidence this septal infarct age undetermined. Per the ED, the patient took full dose aspirin prior to arrival. Prior to admission the patient was ordered a dose of sublingual nitroglycerin and was started on a low- dose, weight-based heparin drip with bolus. Patient was sitting in bed in no acute distress at the time exam. She states that she was in her normal state of health, sitting at her kitchen table this evening writing a letter when she had acute onset of substernal/epigastric bur zbigniew discomfort. When asked about associated/radicular pain the patient states that the back of her bilateral arms felt "heavy". She denies pain in the neck, jaw, back. States symptoms lasted for approximately 1 hour, confirms that she is no longer experiencing the pain at this time but just feels tired. She took 2 baby aspirin at home when symptoms began. When asked what she had to eat maggie moreno in the day she explains that she had an [employer] sub for lunch along with a soda, and did not have anything for dinner prior to symptoms starting. She denies experiencing decreased exercise tolerance or increased shortness of breath/dyspnea on exertion with her normal activities such as going up steps. She adds that yesterday she went for a long walk to her friend's house and felt fine. She denies previous history of cardiac disease herself, and denies any history of sudden cardiac before the age of 50 on either side of the family. When asked, she denies a history of major bleeding and is in agreement with starting heparin drip tonight. Denies recent pleuritic chest pain, cough, hemoptysis, vomiting, dysuria/hematuria, diarrhea, melena, lower extremity swelling, recent trauma. She is a full code and she would want her to make medical decisions for her if she could not make them herself. Of note, the patient underwent a stress echocardiogram on 08/12/2022 which was read as normal, she had no exercise-induced chest pain, and was noted to be hypertensive shortly after. Principal Diagnosis chest pain Discharge Exam General: In no acute distress, stated age, well-nourished, good hygiene HEENT: Normocephalic, atraumatic, no scleral icterus, pupils around round, symmetrical, and reactive to light, moist mucus membranes, trachea midline, no thyromegaly Chest/Pulm: No reproducible pain on palpation of the substernal region/epigastric region, No respiratory distress, symmetrical chest expansion, clear breath sounds throughout Cardiac: RRR, no murmurs noted Abdomen: Negative for ascites and bruising, normoactive bowel sounds, soft, non-tender to palpation throughout Musculoskeletal: Symmetrical and without signs of acute trauma, upper and lower extremities with full ROM, no atrophy, spasticity, or flaccidity Extremities: Radial, dorsalis pedis, and posterior tibial pulses are intact and symmetrical, no edema noted in the BL LE's Discharge Data Allergies Allergy/AdvReac Type Severity Reaction Status Date / Time No Known Allergies Allergy Verified 02/19/24 14:47 Consultations 02/19/24 21:09 ED Decision to Admit Stat 02/19/24 21:19 Consult Cardiology Routine Procedures Performed Operation Date: 02/20/24 10:30 Actual Procedures p Cineradiography w/Routine Exam - Fco Puentes MD p Cath, Left with Cors and Vent - Fco Puentes MD Ordered Studies 02/19/24 21:27 CTA chest dissec wo/w con [CT angio chest dissec wo/w con] Stat 02/20/24 10:52 CL Cath Imgs for PACS use only Routine Hospital Course (1) Chest pain: Possible NSTEMI Admit to the PCU on telemetry and pulse oximetry Troponin increase was failry significant and did mimick an acute coronary syndrome and perhaps NSTEMI. However the coronary cath was essentially clean. Given clearn cornary arteries, will not treat as a non STEMI. There was hypokinesis in the midseptum but no significant evidence of myocarditis and the ejection fraction was normal Given clean coronaries, heparin was stopped. Perhaps this may have been due to hypertension. Losartan will be continued, and will add amlodipine at HS. Patient has been mainly asymptomatic since the procedure as is agreeable for discharge. (2) Hypertension: Patient confirms she has not missed recent doses of her losartan Rest of care per chest pain plan will add amlodipine HS on day of discharge (3) GERD (gastroesophageal reflux disease): resume home meds Total Time Total Time Spent Total Time Spent (In Minutes): 32 Discharge Plan Discharge Items Patient Disposition: Home - Self-Care Reason For Visit: CHEST PAIN, ELEVATED TROP Discharge Diagnosis: chest pain Activity: Resume your previous activity Non-emergency contact: Primary Care Provider Call non-emergency contact if: you have any medication questions Follow-up/Referrals: Parisa Kirkland MD [Primary Care Provider] - 02/27/24 1:00 pm (Hospital follow up scheduled February 26 at 1:00) Diet: Heart Healthy Addtl Attending Provider Instructions: Good morning Mrs. Chang, You were seen for symptoms that could have been related to a heart problem. You did have an elevated troponin which is a protein that resides in the cells of the heart. When there is stress or damage to the heart, this could then leak into your blood stream. Thankfully, we checked your coronary arteries, which are the blood vessels that supply blood to your heart. These were patent and no significant blockages were found. We did an echocardiogram which showed normal heart function, there was a question of a mid septum wall motion abnormality, but this was not significant enough to cause an issue with your heart function. The plan is to monitor your blood pressure and get it controlled slightly better. We will place you on amlodipine 2.5 mg PO HS and have you followup with your PCP in 1-2 weeks. It was a pleasure to meet you. Please refrain from strenuous exercise over the next 3 weeks. Best regards, Earnest Garces Pending Studies at Discharge: No Stand-Alone Forms: My [facility] [employer], Smoking Cessation Medications and DC Order Prescriptions: New amlodipine 2.5 mg tablet 2.5 mg PO PM Qty: 30 0RF Continued triamcinolone acetonide 0.1 % cream 1 applic topical UD PRN (Reason: Skin Irritation) Qty: 15 1RF Rx Instructions: 1 applic topical apply to affected area tid for one week then bid for one week, then qd for one week. then may use prn.; losartan 50 mg tablet 50 mg PO DAILY Qty: 90 3RF solifenacin 10 mg tablet 10 mg PO DAILY Qty: 90 3RF pantoprazole 40 mg tablet,delayed release (DR/EC) See Rx Instructions .ROUTE .COMPLEX Qty: 60 11RF Dose Instruction: TAKE 1 TABLET BY MOUTH TWICE DAILY Rx Instructions: TAKE 1 TABLET BY MOUTH TWICE DAILY famotidine 40 mg tablet 40 mg PO DAILY PRN (Reason: heartburn) Qty: 30 11RF multivitamin Tablet 1 tab PO Q2D Discharge Orders: Discharge Order (Routine); Ordered 02/21/24 Ordered By: Earnest Ulloa/Other Patient Handouts: Symptoms of a Heart Attack, Cardiac Catheterization Dc, Identifying Your Heart Risks Admission Data Admit Date/Time: 02/19/24 21:03 Attending Provider: Earnest Garces Admit Provider: Fausto Hansen Primary Care Provider: Parisa Kirkland Other Providers: Fausto Hansen; Fco Puentes Other Interventions: Discharge Summary Assessment (RN) Last Done: 02/21/24 10:54 Coding Level of Care Code 12258 INP/OBS DISCH >30 MIN Diagnoses Chest pain R07.9 Hypertension I10 GERD (gastroesophageal reflux disease) K21.9
== END 2024-02-21 11:30 | disposition home or self-care (01) | DRG 282 ==
LOC: ED 19:26 → 4W 21:03 → SUATTDRO 21:03 → EDINP 21:03 → 4W 22:17